=== PATIENT | female | born 1955 | race Two or more races ===

== ENCOUNTER 2016-06-01 11:28 | Emergency (ER) | payer MEDICARE, MEDICAID ==
[~2016-06-01] VITALS: Ht 160 cm; Wt 86.2 kg
[~2016-06-01 11:28] MED LIST: AMLO5TAB2 PO; ATOR80TA26 PO; CHOL100043 PO; DOCU-270 PO; DULO60CA45 PO; GABA600T2 PO; INSU10VI5 SQ; LISI10TA5 PO; MEGE400O PO; METF850T2 PO; MINE105O TP; MORP15TA PO; MULT1TAB11 PO; OMEG1CAP PO; PANT40TA4 PO; TRAM50TA PO
[2016-06-01] MEDS ORDERED: PROMETHAZINE HCL 25 MG/1 ML VIAL IM ONE (11:45)
[2016-06-01] MEDS ORDERED: HYDROMORPHONE 1 MG/1 ML DISP.SYRIN IM ONE (11:45)
[2016-06-01] MEDS ORDERED: SPIR25TA4 PO (11:50)
[2016-06-01] MEDS ORDERED: HUMALOG 75/25 SQ (11:50)
[2016-06-01] MEDS ORDERED: MORPHINE PO (11:50)
[2016-06-01] MEDS ORDERED: PROMETHAZINE HCL 25 MG/1 ML VIAL ONE (11:55)
[2016-06-01] MEDS ORDERED: HYDROMORPHONE 2 MG/1 ML DISP.SYRIN ONE (11:55)
--- NOTE | 2016-06-01 13:35 | NUR ---
Patient discharged to home in stable conditon. Written and verbal after care instructions given. Patient and family members verbalize understanding of instructions.wheel chaired pt out to the car door
[2016-06-01 13:56] VITALS: BP 130/71
== END 2016-06-01 13:57 | disposition home or self-care (01) ==
LOC: ER 11:28
DX: S06.0X0A Concussion without loss of consciousness, initial encounter (principal); R51 Headache; M54.2 Cervicalgia; I10 Essential (primary) hypertension; E11.9 Type 2 diabetes mellitus without complications; Z79.4 Long term (current) use of insulin; K21.9 Gastro-esophageal reflux disease without esophagitis; M06.9 Rheumatoid arthritis, unspecified; I25.2 Old myocardial infarction; M19.90 Unspecified osteoarthritis, unspecified site; Z88.0 Allergy status to penicillin; W18.30XA Fall on same level, unspecified, initial encounter; Y93.89 Activity, other specified; Y99.8 Other external cause status; Y92.89 Other specified places as the place of occurrence of the external cause
CPT/HCPCS: 70450; 72125; 72192; A4663; J1170; J2550

== ENCOUNTER 2016-06-03 13:17 | Inpatient (IN) | payer MEDICARE, MEDICAID ==
[~2016-06-03] VITALS: Ht 157.5 cm; Wt 81.6 kg
[~2016-06-03 13:17] MED LIST changes: -AMLO5TAB2 PO; -CHOL100043 PO; +HUMALOG 75/25 SQ; -INSU10VI5 SQ; -MEGE400O PO; -MINE105O TP; -MORP15TA PO; +MORPHINE PO; +SPIR25TA4 PO; -TRAM50TA PO
--- NOTE | 2016-06-03 13:38 | NUR ---
PT POSITIONED FOR COMFORT ON ERMOBILE, MONITOR SHOWS SINUS TACH AT 102, PO2 ON ROOM AIR=89%.
[2016-06-03] MEDS ORDERED: MORPHINE SULFATE 2 MG/1 ML DISP.SYRIN IV ONE ×2 (14:00→16:00)
[2016-06-03] MEDS ORDERED: IV NORMAL SALINE 500 ML BAG IV ONE (14:00)
[2016-06-03] MEDS ORDERED: MORPHINE SULFATE 2 MG/1 ML DISP.SYRIN ONE ×2 (14:04→16:21)
--- NOTE | 2016-06-03 14:24 | NUR ---
LAB ROSSANA BLOOD, PT HAD EKG DONE, IV PLACED, MORPHINE ADMINISTERED, 500ML 0.9NS BOLUS INFUSING. PT'S SISTER AT THE BED SIDE. MONITOR SHOWS NSR, PO2=98 ON 2L O2 VIA NASAL CANNULA.
[2016-06-03 14:56] LABS: CALCIUM 9.5 mg/dL (8.5-10.1); CREATININE 0.7 mg/dL (0.6-1.3); TROPONIN I < 0.017 ng/mL (0.00-0.056)
[2016-06-03 15:03] LABS: BASOPHILS # (AUTO) 0.1 K/uL (0.0-0.2); BASOPHILS % (AUTO) 0.9 % (0.0-2.0); EOSINOPHILS # (AUTO) 0.2 K/uL (0.0-0.7); EOSINOPHILS % (AUTO) 1.9 % (0.0-7.0); HEMATOCRIT 29.9 % (37.0-47.0); HEMOGLOBIN 9.6 g/dL (12.0-16.0); LYMPHOCYTES # (AUTO) 2.3 K/uL (0.8-4.8); LYMPHOCYTES % (AUTO) 18.4 % (20.5-51.5); MEAN CORPUSCULAR HEMOGLOBIN 25.6 uug (27.0-31.0); MEAN CORPUSCULAR HGB CONC 32 g/dL (32.0-37.0); MEAN CORPUSCULAR VOLUME 79.9 fL (81.0-99.0); MONOCYTES # (AUTO) 0.8 K/uL (0.1-1.30); MONOCYTES % (AUTO) 6.2 % (0.0-11.0); NEUTROPHILS # (AUTO) 9.4 K/uL (1.8-8.9); NEUTROPHILS % (AUTO) 72.6 % (38.5-71.5); PLATELET COUNT (AUTO) 384 K/uL (150-450); RED BLOOD CELL COUNT(AUTO) 3.74 MIL/uL (4.20-5.40); RED CELL DISTRIBUTION WIDTH 19.3 % (11.5-14.5); WHITE BLOOD COUNT (AUTO) 12.8 K/uL (4.0-11.2)
[2016-06-03 15:12] LABS: ALBUMIN 3.1 g/dL (3.4-5.0); BILIRUBIN,DIRECT 0.1 mg/dL (0.0-0.2); BILIRUBIN,TOTAL 0.2 mg/dL (0.2-1.0); TOTAL PROTEIN, SERUM 6.4 g/dL (6.4-8.2)
[2016-06-03 15:19] LABS: LACTIC ACID 2.7 mmol/L (0.4-2.0)
[2016-06-03] MEDS ORDERED: VANCOMYCIN IV 1,000 MG in IV DEXTROSE 5% 250 ML IV ONE (15:30)
[2016-06-03] MEDS ORDERED: PIPERACILLIN SODIUM/TAZOBACTAM 3.375 G in IV DEXTROSE 5% 50 ML IV ONE (15:30)
[2016-06-03] MEDS ORDERED: VANCOMYCIN IV 200 ML ONE (15:44)
[2016-06-03] MEDS ORDERED: PIPERACILLIN SODIUM/TAZO 3.375 GM VIAL ONE (15:44)
[2016-06-03 16:13] LABS: *BILIRUBIN,URIN NEGATIVE (NEGATIVE); *BLOOD, URINE NEGATIVE (NEGATIVE); *CLARITY,URINE CLEAR (CLEAR); *COLOR,URINE YELLOW (YELLOW); *KETONES,URINE NEGATIVE (NEGATIVE); *PROTEIN,URINE NEGATIVE (NEGATIVE); NITRITE, URINE NEGATIVE (NEGATIVE); UGLUCOSE NEGATIVE (NEGATIVE)
[2016-06-03 16:31] LABS: LEUKOCYTE ESTERASE ,URINE TRACE (NEGATIVE)
[2016-06-03 16:32] LABS: BACTERIA,URINE FEW /HPF (NONE SEEN); RBC,URINE 0-3 /HPF (0-3); SQUAMOUS EPITHELIAL CELL,UR FEW /HPF (NONE SEEN)
--- NOTE | 2016-06-03 16:54 | NUR ---
MSE COMPLETED, ADMIT ORDER WRITTEN,BELONGINGS LIST DONE, SN=BAR REPORT TO CARMEN BANKS. ALL MEDS COMPLETED. PT TRANSPORTED VIA [facility] TO RM 215.
--- NOTE | 2016-06-03 17:10 | NUR ---
received from ER per stretcher awake alert and oriented, wisth c/o lower back/ legs pain, left lower arm amputee, on 2l/nc, tele applied- SR 90's, routine admission care rendered, initial assessment done, fall precaution observed. call lite within reach
--- NOTE | 2016-06-03 17:11 | NUR ---
DR BEAULIEU DID NOT WANT A CODE SPSIS CALLED AND DID NOT WANT FLUID CHALLANGE.
[2016-06-03] MEDS ORDERED: ONDANSETRON 4 MG/2 ML VIAL IV PRN (17:15)
[2016-06-03] MEDS ORDERED: LEVOFLOXACIN 500 MG/D5W 500 MG in PREMIXED 1 EACH IV SCH (17:15)
[2016-06-03] MEDS ORDERED: MAGNESIUM HYDROXIDE 30 ML LIQUID UDC PO PRN (17:15)
[2016-06-03] MEDS ORDERED: MORPHINE SULFATE 2 MG/1 ML DISP.SYRIN IV PRN (17:15)
[2016-06-03] MEDS ORDERED: FUROSEMIDE 20 MG/2 ML VIAL IV ONE (17:30)
[2016-06-03] MEDS ORDERED: ALBUTEROL SULFATE 2.5 MG/3 ML NEBU NEB PRN (17:45)
[2016-06-03] MEDS ORDERED: IPRATROPIUM BROMIDE 0.5 MG/2.5 ML NEBU NEB PRN (17:45)
[2016-06-03] MEDS ORDERED: DEXTROSE 50% 50 ML DISP.SYRIN IV PRN (17:45)
--- NOTE | 2016-06-03 17:58 | NUR ---
called A Floyd FENCE SUPERVISOR and informed of lactic acid 3.5
--- NOTE | 2016-06-03 18:20 | NUR ---
CLINICAL PHARMACY NOTE: VANCOMYCIN DOSING Request for vancomycin dosing on 60 y/o female 5'2" 180LBS FOR SEPSIS Temp 99.3F BUN 10 Scr 0.7 WBC 12.8 received 1gm of vancomycin in ER Continue vancomycin 1250mg ivbp q12hr estimate trough 15. Will order trough level prior to 4th dose of 1250mg. Will continue to monitor.
[2016-06-03] MEDS: MORPHINE SULFATE 2 MG/1 ML DISP.SYRIN IV PRN (18:29)
[2016-06-03] MEDS: METFORMIN HCL 850 MG TABLET PO SCH (18:51)
--- NOTE | 2016-06-03 19:00 | NUR ---
PATIENT ALERT ORIENTED, ABLE TO MAKE NEEDS KNOWN, NO SOB, NO CHEST PAIN, PATIENT SINUS RYTHM 65, CONT TO MONITOR.
--- NOTE | 2016-06-03 19:45 | NUR ---
called Opal Devries ROCK PICKER notify the lactid acid 2.2 with no new order.
[2016-06-03 20:00] VITALS: BP 108/67
[2016-06-03] MEDS: BLOOD SUGAR DIAGNOSTIC 1 EACH STRIP VI SCH (20:06)
[2016-06-03] MEDS: INSULIN REGULAR, HUMAN 300 UNIT/3 ML VIAL SQ PRN (20:10)
[2016-06-03] MEDS ORDERED: ATORVASTATIN 40 MG TABLET PO SCH (21:00)
[2016-06-03] MEDS ORDERED: Medication Not On Formulary EA (Atorvastatin Calcium (Lipitor) 80 MG) PO SCH (21:00)
[2016-06-03] MEDS: GABAPENTIN 300 MG CAPSULE PO SCH (21:10)
--- NOTE | 2016-06-03 23:20 | NUR ---
LAB REPORT LACTIC ACID REFLEX 2.2, AND TROPONIN <0017, NOTIFY CHARLOTTE LUIS ATTRACTION WORKER AWAITING FOR RESPONSE.
--- NOTE | 2016-06-03 23:30 | NUR ---
DR. HENDRIX AWARE OF LACTIC ACID REFLEX OF 2.2,
[2016-06-04] VITALS: BP 127/76
[2016-06-04] MEDS: MORPHINE SULFATE 2 MG/1 ML DISP.SYRIN IV PRN ×5 (00:36→22:03)
[2016-06-04] MEDS: VANCOMYCIN IV 1,250 MG in IV NORMAL SALINE 500 ML IV SCH ×2 (03:49→17:45)
[2016-06-04] MEDS: ACETAMINOPHEN 325 MG TABLET PO PRN ×2 (03:55→15:40)
--- NOTE | 2016-06-04 03:56 | NUR ---
PATIENT COMPLAIN OF PAIN, OFFERED TYLENOL 650MG PO BUT REFUSED.
[2016-06-04 04:00] VITALS: BP 122/72
--- NOTE | 2016-06-04 04:34 | NUR ---
PATIENT PLACE ON ISOLATION DUE TO DIARRHEA, PROPHYLAXIS, FOR WOUND CONSULT DUE TO RASHES UNDER BREAST, AND MULTIPLE BLISTER ON SKIN.
--- NOTE | 2016-06-04 05:35 | NUR ---
PATIENT ALERT AWAKE, COMPLAIN OF PAIN OF LOWER BACK AND NECK, MEDICATED ORDERED, TURN AND REPOSITION, KEPT CLEAN AND DRY, REMAIN ON CONTACT ISOLATION, NO SOB, NO CHEST PAIN, PATIENT ON SINUS RYTHM WITH PVC 95. KEPT COMFORTABLE.
[2016-06-04] MEDS: PANTOPRAZOLE SODIUM 40 MG TABLET.DR PO SCH (06:30)
[2016-06-04] MEDS: BLOOD SUGAR DIAGNOSTIC 1 EACH STRIP VI SCH ×4 (06:33→21:05)
--- NOTE | 2016-06-04 07:20 | NUR ---
Report received from night warehouse manager. Patient dozing intermittently in bed, no signs of distress noted. Respirations even and unlabored, on 2L O2 via NS. Sinus rhythm on tele monitor. Contact isolation for C-Diff maintained, safety precautions maintained. Call light within reach.
[2016-06-04 07:22] LABS: BASOPHILS # (AUTO) 0.2 K/uL (0.0-0.2); BASOPHILS % (AUTO) 1.9 % (0.0-2.0); EOSINOPHILS # (AUTO) 0.3 K/uL (0.0-0.7); EOSINOPHILS % (AUTO) 2.2 % (0.0-7.0); HEMOGLOBIN 10.9 g/dL (12.0-16.0); LYMPHOCYTES # (AUTO) 2.3 K/uL (0.8-4.8); LYMPHOCYTES % (AUTO) 18.5 % (20.5-51.5); MEAN CORPUSCULAR HEMOGLOBIN 25.3 uug (27.0-31.0); MEAN CORPUSCULAR HGB CONC 32 g/dL (32.0-37.0); MONOCYTES # (AUTO) 0.9 K/uL (0.1-1.30); MONOCYTES % (AUTO) 7.4 % (0.0-11.0); NEUTROPHILS # (AUTO) 8.6 K/uL (1.8-8.9); PLATELET COUNT (AUTO) 299 K/uL (150-450); RED CELL DISTRIBUTION WIDTH 19.1 % (11.5-14.5); WHITE BLOOD COUNT (AUTO) 12.3 K/uL (4.0-11.2)
[2016-06-04 07:23] LABS: RED BLOOD CELL COUNT(AUTO) 4.32 MIL/uL (4.20-5.40)
[2016-06-04 07:24] LABS: HEMATOCRIT 34.1 % (37.0-47.0)
[2016-06-04 07:35] LABS: ALBUMIN 3.1 g/dL (3.4-5.0); BILIRUBIN,TOTAL 0.3 mg/dL (0.2-1.0); CALCIUM 9.3 mg/dL (8.5-10.1); PHOSPHOROUS 4.5 mg/dL (2.5-4.9); POTASSIUM 3.9 mmol/L (3.5-5.1); TOTAL PROTEIN, SERUM 6.4 g/dL (6.4-8.2)
[2016-06-04 07:37] LABS: CREATININE 0.5 mg/dL (0.6-1.3)
[2016-06-04 07:40] LABS: MAGNESIUM 1.1 mg/dL (1.8-2.4)
[2016-06-04 08:11] LABS: THYROID STIMULATING HORMONE 2.382 mIU/mL (0.358-3.740)
[2016-06-04] MEDS ORDERED: MAGNESIUM OXIDE 400 MG TABLET PO ONE (08:30)
[2016-06-04] MEDS: INSULIN REGULAR, HUMAN 300 UNIT/3 ML VIAL SQ PRN ×4 (08:54→21:09)
[2016-06-04] MEDS: GABAPENTIN 300 MG CAPSULE PO SCH ×2 (08:55→20:04)
[2016-06-04] MEDS: METFORMIN HCL 850 MG TABLET PO SCH ×2 (08:55→18:00)
[2016-06-04] MEDS: MULTIVIT, IRON, MIN NO. 8, FA TABLET PO SCH (08:55)
[2016-06-04] MEDS: DULOXETINE 60 MG CAPSULE.DR PO SCH (08:55)
[2016-06-04] MEDS: SPIRONOLACTONE 25 MG TABLET PO SCH (08:55)
[2016-06-04] MEDS: OMEGA-3 FATTY ACIDS/FISH OIL CAPSULE PO SCH (08:55)
[2016-06-04] MEDS: LISINOPRIL 10 MG TABLET PO SCH (08:56)
[2016-06-04] MEDS ORDERED: Medication Not On Formulary EA (Multivitamins W-Minerals (Multivitamin With Minerals) 1 PO SCH (09:00)
[2016-06-04] MEDS ORDERED: Medication Not On Formulary EA (Gabapentin 600 MG) PO SCH (09:00)
[2016-06-04] MEDS ORDERED: METFORMIN HCL 850 MG TABLET PO SCH (09:00)
[2016-06-04] MEDS ORDERED: Medication Not On Formulary EA (Omega-3 Fatty Acids/Fish Oil (Fish Oil 1,200 Mg Softgel) PO SCH (09:00)
[2016-06-04] MEDS ORDERED: FUROSEMIDE 20 MG/2 ML VIAL IV ONE (09:15)
[2016-06-04 10:08] LABS: ANISOCYTOSIS 2+; HYPOCHROMASIA 1+; OVALOCYTES 1+; TEAR DROP CELLS 1+
[2016-06-04 11:38] VITALS: BP 113/78
[2016-06-04] MEDS: ASPIRIN 81 MG TAB.CHEW PO SCH (13:30)
[2016-06-04] MEDS: MAGNESIUM SULFATE/D5W 100 ML IV SCH ×4 (13:30→20:57)
[2016-06-04] MEDS: MEROPENEM 1 G in IV NORMAL SALINE 100 ML IV SCH ×2 (14:00→22:02)
--- NOTE | 2016-06-04 15:35 | NUR ---
Clinical pharmacy note-Vancomycin dosing per pharmacy Subjective: To continue Vancomycin dosing on this patient for sepsis Objective: BUN 9 Scr 0.5 WBC 12.3 Ht 5'2" wt 180 lbs Assessment/Plan: Since renal function is stable, will continue same dose of Vancomycin 1250mg IV every 12hrs(first dose was given today at 0349) and draw trough by 4th dose (ordered at 1530 tomorrow). Will monitor renal function closely to adjust the dose if needed. Will follow daily.
[2016-06-04 15:51] VITALS: BP 106/60
[2016-06-04 20:00] VITALS: BP 110/67
[2016-06-04] MEDS: ATORVASTATIN 40 MG TABLET PO SCH (20:03)
[2016-06-05] VITALS: BP 154/71
[2016-06-05] MEDS: MORPHINE SULFATE 2 MG/1 ML DISP.SYRIN IV PRN ×6 (02:12→21:09)
[2016-06-05] MEDS: VANCOMYCIN IV 1,250 MG in IV NORMAL SALINE 500 ML IV SCH ×2 (03:59→16:40)
[2016-06-05 04:00] VITALS: BP 126/63
--- NOTE | 2016-06-05 05:57 | NUR ---
END OF SHIFT NOTE: PT IN BED, IN NO ACUTE SIGNS OF DISTRESS, C/O R HIP PAIN 10/25, CONTROLLED WITH MS 2MG IV PRESCRIBED. TURNED AND REPOSITIONED. NO BM DURING SHIFT. CONTINUE ON CONTACT PRECAUTION FOR CDIFF. BS MONITORED, LAST NIGHT WAS 325, GIVEN 8 UNITS OF INSULIN PER SLIDING SCALE. SNACKS GIVEN. SAFETY MAINTAINED. CALL LIGHT WITHIN REACH.
[2016-06-05] MEDS: MEROPENEM 1 G in IV NORMAL SALINE 100 ML IV SCH ×3 (06:12→21:20)
[2016-06-05] MEDS: PANTOPRAZOLE SODIUM 40 MG TABLET.DR PO SCH (06:13)
[2016-06-05] MEDS: BLOOD SUGAR DIAGNOSTIC 1 EACH STRIP VI SCH ×4 (06:41→21:20)
[2016-06-05] MEDS: GABAPENTIN 300 MG CAPSULE PO SCH ×3 (09:00→21:08)
[2016-06-05] MEDS: SPIRONOLACTONE 25 MG TABLET PO SCH (09:35)
[2016-06-05] MEDS: METFORMIN HCL 850 MG TABLET PO SCH (09:35)
[2016-06-05] MEDS: OMEGA-3 FATTY ACIDS/FISH OIL CAPSULE PO SCH (09:36)
[2016-06-05] MEDS: DULOXETINE 60 MG CAPSULE.DR PO SCH (09:36)
[2016-06-05] MEDS: ASPIRIN 81 MG TAB.CHEW PO SCH (09:36)
[2016-06-05] MEDS: MULTIVIT, IRON, MIN NO. 8, FA TABLET PO SCH (09:37)
[2016-06-05] MEDS: LISINOPRIL 10 MG TABLET PO SCH (09:38)
[2016-06-05] MEDS: INSULIN REGULAR, HUMAN 300 UNIT/3 ML VIAL SQ PRN ×4 (09:41→21:25)
[2016-06-05 10:17] LABS: BASOPHILS # (AUTO) 0.2 K/uL (0.0-0.2); BASOPHILS % (AUTO) 2.2 % (0.0-2.0); EOSINOPHILS # (AUTO) 0.2 K/uL (0.0-0.7); EOSINOPHILS % (AUTO) 2.2 % (0.0-7.0); HEMATOCRIT 29.6 % (37.0-47.0); HEMOGLOBIN 9.3 g/dL (12.0-16.0); LYMPHOCYTES # (AUTO) 1.7 K/uL (0.8-4.8); MEAN CORPUSCULAR HEMOGLOBIN 24.8 uug (27.0-31.0); MEAN CORPUSCULAR HGB CONC 31 g/dL (32.0-37.0); MEAN CORPUSCULAR VOLUME 79.3 fL (81.0-99.0); MONOCYTES # (AUTO) 0.7 K/uL (0.1-1.30); MONOCYTES % (AUTO) 6.7 % (0.0-11.0); NEUTROPHILS # (AUTO) 7.8 K/uL (1.8-8.9); NEUTROPHILS % (AUTO) 72.9 % (38.5-71.5); PLATELET COUNT (AUTO) 378 K/uL (150-450); RED BLOOD CELL COUNT(AUTO) 3.73 MIL/uL (4.20-5.40); RED CELL DISTRIBUTION WIDTH 19.1 % (11.5-14.5); WHITE BLOOD COUNT (AUTO) 10.6 K/uL (4.0-11.2)
[2016-06-05 10:27] LABS: CALCIUM 8.2 mg/dL (8.5-10.1); CREATININE 0.7 mg/dL (0.6-1.3); POTASSIUM 3.9 mmol/L (3.5-5.1)
[2016-06-05 10:30] LABS: ANISOCYTOSIS 2+; BASOPHILS % (MANUAL) 1 % (0-2); EOSINOPHILS % (MANUAL) 3 % (0-8); HYPOCHROMASIA 1+; LYMPHOCYTES % (MANUAL) 14 % (20-40); MONOCYTES % (MANUAL) 7 % (2-10); NEUTROPHILS % (MANUAL) 75 % (42-75); PLATELET ESTIMATE ADEQUATE
[2016-06-05 10:42] LABS: BILIRUBIN,TOTAL 0.4 mg/dL (0.2-1.0); TOTAL PROTEIN, SERUM 6.3 g/dL (6.4-8.2)
[2016-06-05 10:52] LABS: LACTIC ACID 3.5 mmol/L (0.4-2.0)
[2016-06-05 11:43] VITALS: BP 122/71
[2016-06-05] MEDS: glipiZIDE 5 MG TABLET PO SCH ×2 (12:10→16:40)
--- NOTE | 2016-06-05 14:02 | NUR ---
WOUND CARE CONSULT: PT PRESENTS WITH INTACT SKIN. PER FAMILY AT BEDSIDE, PT PREVIOUSLY HAD EDEMA TO LOWER LEGS. DISCUSSED SKIN PROTECTION WITH NURSING STAFF. WILL SEE PRN. SMALLS IN AGREEMENT WITH PLAN OF CARE.
[2016-06-05] MEDS ORDERED: Z GUARD REMEDY PASTE 57 GM TUBE TOP PRN (14:15)
[2016-06-05 15:32] VITALS: BP 110/68
--- NOTE | 2016-06-05 15:43 | NUR ---
Clinical pharmacy note-Vancomycin dosing per pharmacy Subjective: To continue Vancomycin dosing on this patient for sepsis Objective: BUN 10 Scr 0.7 WBC 10.6 Ht 5'2" wt 180 lbs Assessment/Plan: Since renal function is stable, will continue same dose of Vancomycin 1250mg IV every 12hrs(third dose was given today at 0359) and draw trough by 4th dose (ordered at 1530 today). Will follow the level to adjust the dose. Will monitor renal function closely to adjust the dose if needed. Will follow daily. Addendum: 06/05/16 at 1656 by MIGUELANGEL BROOKS ADM VANCOMYCIN TROUGH 9 WILL CHANGE DOSE TO 1500MG IV Q10HRS AND DRAW TROUGH BY 4TH DOSE FOR EXPECTED TROUGH AROUND 15.
[2016-06-05] MEDS: VANCOMYCIN IV 1,500 MG in IV NORMAL SALINE 500 ML IV SCH (17:20)
[2016-06-05] MEDS: METFORMIN HCL 500 MG TABLET PO SCH (17:40)
[2016-06-05] MEDS ORDERED: METFORMIN HCL 850 MG TABLET PO SCH (18:00)
[2016-06-05 19:00] VITALS: BP 119/72
[2016-06-05] MEDS: ATORVASTATIN 40 MG TABLET PO SCH (21:08)
[2016-06-06] MEDS: VANCOMYCIN IV 1,500 MG in IV NORMAL SALINE 500 ML IV SCH (03:38)
[2016-06-06] MEDS: MORPHINE SULFATE 2 MG/1 ML DISP.SYRIN IV PRN ×5 (03:55→16:49)
[2016-06-06 04:05] VITALS: BP 122/55
[2016-06-06] MEDS: MEROPENEM 1 G in IV NORMAL SALINE 100 ML IV SCH (06:33)
[2016-06-06] MEDS: PANTOPRAZOLE SODIUM 40 MG TABLET.DR PO SCH (06:33)
[2016-06-06] MEDS: BLOOD SUGAR DIAGNOSTIC 1 EACH STRIP VI SCH ×3 (07:20→15:55)
--- NOTE | 2016-06-06 07:25 | NUR ---
PT RECEIVED IN BED AWAKE.NO C/O PAIN NOTED.V/S ARE STABLE.PT IS AXOX4.ASSESSMENT DONE,
--- NOTE | 2016-06-06 07:30 | NUR ---
PT RECEIVED IN BED SLEEPING.V/S ARE STABLE.PT IS AXOX4 .NO C/O PAIN NOTED .BREAKFAST SERVED.
[2016-06-06] MEDS: INSULIN REGULAR, HUMAN 300 UNIT/3 ML VIAL SQ PRN ×3 (07:36→16:32)
--- NOTE | 2016-06-06 07:37 | NUR ---
pt continue to have generalized pain, morphine 2 mg q3 hrs given and pt fall asleep. iv line intact infusing antibiotics. incontinent of bladder ,diaper changed x2 ,no bm overnight, vss,afebrile,sinus rhythm on monitor.
[2016-06-06] MEDS: glipiZIDE 5 MG TABLET PO SCH ×2 (07:42→15:55)
[2016-06-06] MEDS: METFORMIN HCL 500 MG TABLET PO SCH ×2 (07:42→17:06)
[2016-06-06] MEDS: MULTIVIT, IRON, MIN NO. 8, FA TABLET PO SCH (08:07)
[2016-06-06] MEDS: DULOXETINE 60 MG CAPSULE.DR PO SCH (08:07)
[2016-06-06] MEDS: ASPIRIN 81 MG TAB.CHEW PO SCH (08:07)
[2016-06-06] MEDS: GABAPENTIN 300 MG CAPSULE PO SCH (08:07)
[2016-06-06] MEDS: OMEGA-3 FATTY ACIDS/FISH OIL CAPSULE PO SCH (08:07)
[2016-06-06] MEDS: LISINOPRIL 10 MG TABLET PO SCH (08:08)
[2016-06-06] MEDS: SPIRONOLACTONE 25 MG TABLET PO SCH (08:08)
[2016-06-06 11:23] VITALS: BP 122/75
[2016-06-06] MEDS: ACETAMINOPHEN 325 MG TABLET PO PRN (15:23)
[2016-06-06 15:30] VITALS: BP 100/55
[2016-06-06] MEDS ORDERED: GLIP5TAB13 PO (17:33)
[2016-06-06] MEDS ORDERED: ATOR40TA PO (17:33)
[2016-06-06] MEDS ORDERED: ASPI81TA31 PO (17:33)
--- NOTE | 2016-06-06 18:35 | NUR ---
D/C ORDERS RECEIVED NOTED AND CARRIED OUT.D/C INSTRUCTIONS AND EDUCATIONS GIVEN TO THE PT.D/C HEPLOCK PER MD ORDERS.PT LEFT THE FACILITY VIA PRIVATE CAR IN STABLE CONDITION.
[2016-06-06] MEDS ORDERED: NITROFURANTOIN/NITROFURAN MAC 100 MG CAPSULE PO SCH (21:00)
== END 2016-06-06 18:37 | disposition home or self-care (01) | DRG 871 ==
LOC: ER 13:18 → TELE 16:31 → MED 06-05 13:43
PROVIDERS: ADMIT Internal Medicine; ATTEND Internal Medicine
DX: A41.9 Sepsis, unspecified organism (principal); I50.33 Acute on chronic diastolic (congestive) heart failure; D68.59 Other primary thrombophilia; N39.0 Urinary tract infection, site not specified; E87.2 Acidosis; J90 Pleural effusion, not elsewhere classified; D50.9 Iron deficiency anemia, unspecified; E88.09 Other disorders of plasma-protein metabolism, not elsewhere classified; I25.10 Atherosclerotic heart disease of native coronary artery without angina pectoris; I25.2 Old myocardial infarction; E66.9 Obesity, unspecified; E11.65 Type 2 diabetes mellitus with hyperglycemia; E78.5 Hyperlipidemia, unspecified; R65.20 Severe sepsis without septic shock; B95.2 Enterococcus as the cause of diseases classified elsewhere; K21.9 Gastro-esophageal reflux disease without esophagitis; M06.9 Rheumatoid arthritis, unspecified; M48.00 Spinal stenosis, site unspecified; Z79.84 Long term (current) use of oral hypoglycemic drugs; Z86.718 Personal history of other venous thrombosis and embolism; Z87.440 Personal history of urinary (tract) infections; Z88.0 Allergy status to penicillin; Z68.32 Body mass index [BMI] 32.0-32.9, adult; Z91.81 History of falling; I11.0 Hypertensive heart disease with heart failure
CPT/HCPCS: 36415; 70030-TC; 71010; 83550; 83605; 83735; 84100; 84443; 85025; 85730; 87040; 87077; 87086; 93005; 97001; 97110; 97116; 97530; A4663; J1815; J1940; J1956; J2185; J2270; J2543; J3370; J3475; J3490; J7040; J7050; J7060